=== PATIENT | female | born 1980 | race Caucasian/White ===

== ENCOUNTER 2016-09-25 04:59 | Inpatient (IN) | payer OTHER ==
[2016-09-25] MEDS ORDERED: LR 1,500 ML IV ONE (05:00)
[2016-09-25] MEDS ORDERED: SODIUM CHLORIDE 0.9% 3 ML FLUSH FLUSH PRN ×2 (05:00→08:32)
[2016-09-25] MEDS ORDERED: LR 1,000 ML IV SCH (05:00)
[2016-09-25] MEDS ORDERED: CEFAZOLIN 1 GM VIAL IV ONE (05:00)
[2016-09-25 05:28] VITALS: BMI 42.4
[2016-09-25 05:49] LABS: AUTOMATED BASOPHIL 0.3 % (0-2); AUTOMATED EOSINOPHIL 0.9 % (0-5); AUTOMATED LYMPH 20.6 % (17-44); AUTOMATED MONOCYTE 8.3 % (3-10); AUTOMATED NEUTROPHIL 69.9 % (45-76); MPV 7.4 fL (7.4-10.4)
[2016-09-25] MEDS ORDERED: Vaccine Screening Complete SCH ×2 (06:00→09:00)
--- NOTE | 2016-09-25 07:08 | HISTPHYS ---
- HISTORY OF PRESENT ILLNESS Age: 35 Estimated Due Date: 09/30/16 Gestational Age: 39 : 3 Para: 1 Patient Presents to:: Labor & Delivery Presents for:: Current : No Complications - REVIEW OF SYSTEMS Reports/Denies: Denies: Complaints Pain: Reports: None - ALLERGIES Allergies Allergy/AdvReac Type Severity Reaction Status Date / Time No Known Allergies Allergy Verified 09/25/16 05:14 - PAST MEDICAL HISTORY Reports: No Significant History - PAST SURGICAL HISTORY Reports: Section, Dilation & Curettage - SOCIAL HISTORY Smoking Status: Former smoker Social History: Denies: Amphetamine Use, Alcohol Use, Barbiturate Use, Benzodiazipine Use, Cocaine Use, Heroin Use, Marijuana Use, Methadone Use, MDMA (Ecstasy) Use, Substance Use Disorder Marital Status: - GENITOURINARY HISTORY HX : 3 Para: 1 Live Deliveries (# of pregnancies resulting in a live ): 1 1 Sex: Male Weight: 8-3 Weeks Gestation: 40 2 Weeks Gestation: 8 Complications with or Delivery: Reports: SAB/Miscarriage - PHYSICAL EXAM Vital Signs:: Temperature: 97.5 F (09/25/16 05:32) HR: 95 (09/25/16 05:32) RR: 20 (09/25/16 05:32) BP: 133/63 (09/25/16 05:32) Pulse Ox: 98 (09/25/16 05:32) GENERAL: Alert, Oriented, No Acute Distress HEENT: Normal CARDOVASCULAR/CHEST: Systolic murmur RESPIRATORY: Normal - CTA ABDOMEN: Gravid, Non-Tender, Obese Fundal Height (cm): 41 MUSCULOSKELETAL: Normal EXTERMITIES: Moves All Extremeties. negative: Edema - ASSESSMENT (ACTIVE PROBLEMS) (1) Term Acute Z34.80 - ENCOUNTER FOR SUPRVSN OF NORMAL , UNSP TRIMESTER (2) Previous delivery affecting Acute O34.219 - MATERNAL CARE FOR UNSP TYPE SCAR FROM PREVIOUS DEL - PLAN Admit Other Plan: 35 yo presents at term for repeat ltcs. Routine care, admit expect delivery.
[2016-09-25] MEDS ORDERED: hydrALAZINE 20 MG/ML VIAL IV PRN (07:13)
[2016-09-25] MEDS ORDERED: MEPERIDINE 25 MG/ML TUBEX IV PRN (07:13)
[2016-09-25] MEDS ORDERED: FENTANYL 100 MCG/2 ML VIAL IV PRN ×2 (07:13)
[2016-09-25] MEDS ORDERED: LABETALOL 20 MG/4 ML SYRINGE IV PRN (07:13)
[2016-09-25] MEDS ORDERED: ONDANSETRON HCL 4 MG/2 ML VIAL IV PRN (07:13)
[2016-09-25] MEDS ORDERED: HYDROmorphone 1 MG INJECTION IV PRN ×2 (07:13)
[2016-09-25] MEDS ORDERED: ONDANSETRON HCL 4 MG ODT TAB PO PRN (07:13)
--- NOTE | 2016-09-25 07:14 | HIM.ANES ---
Anesthesia Evaluation & Plan Diagnoses: MATERNAL CARE FOR UNSP TYPE SCAR FROM PREVIOUS DEL (09/25/16) - Focused Review of Systems Cardiac History: Yes: Hx Cardiac Disorders, Hx Abnormal Cholesterol/ Hyperlipidemia HEENT: No: Other HEENT Problems Hx Other HEENT Surgery: EYE SURGERY Gastrointestinal: No: Hx Gastrointestinal Disorders Neurological/Musculoskeletal: No: Hx Neurological Disorders Physiological: No Hx Mental/Emotional Disorders Endocrine: Yes: Hx Hypothyroidism (takes levothyroxine) Smoking Status: Former smoker Past Social History: Denies: Amphetamine Use, Alcohol Use, Barbiturate Use, Benzodiazipine Use, Cocaine Use, Heroin Use, Marijuana Use, Methadone Use, MDMA (Ecstasy) Use, Substance Use Disorder Hx Stress Test (date): No Hx Echocardiogram (date): No Hx Chest Xray (date): No Other Surgical History: EYE SURGERY C/S surgery for lazy eye(lt side) 4yrs old - Focused Physical Exam NPO since: midnight Mallampati: Class II Thyromental Distance: Greater than 3 Neck: Full Range of Motion Dental: Normal - no significant findings Cardiovascular/Chest: Normal Respiratory: Lungs clear Any problems with anesthesia, including nausea and vomiting?: No Any relatives with a history of Malignant Hyperthermia?: No Beta Katherine given (if appropriate): N/A Other: Problem List Problem Status Onset Previous delivery affecting Acute Term Acute CBC/BMP/Other 09/25/16 05:20 Allergies Allergy/AdvReac Type Severity Reaction Status Date / Time No Known Allergies Allergy Verified 09/25/16 05:14 Home Medications Medication Instructions Recorded Last Taken Type Levothyroxine Sodium [Synthroid] 100 mcg PO DAILY 07/01/13 09/25/16 04:00 History Pnv22/Iron Cbn&Gluc/FA/Dss/Dha 1 each PO DAILY 07/01/13 09/24/16 22:00 History [Citranatal Dha Pack] Height and Weight Patient's height 5 ft 5 in Patient's weight 127.006 kg BMI 42.4 Vital Signs Temperature 97.5 F 09/25/16 05:32 Pulse Rate 95 09/25/16 05:32 Respiratory Rate 20 09/25/16 05:32 Blood Pressure 133/63 09/25/16 05:32 Pulse Oxygen Saturation 98 09/25/16 05:32 - Anesthetic Plan Anesthesia Type: Spinal ASA Class: 2 -: I have examined this patient and reviewed the medical record. The patient has been assessed prior to anesthesia. Risks and benefits of anesthesia and anesthetic technique options have been discussed and all questions answered. The patient accepts the risk and desires me to proceed with the planned anesthetic.
[2016-09-25] MEDS ORDERED: OXYTOCIN 1,000 ML IV ONE (08:32)
[2016-09-25] MEDS ORDERED: LANOLIN OINTMENT 0.25 OZ TUBE TOP PRN (08:32)
[2016-09-25] MEDS ORDERED: ZOLPIDEM TARTRATE 5 MG TAB PO PRN (08:32)
[2016-09-25] MEDS ORDERED: HYDROmorphone 50 ML IV PRN (08:32)
[2016-09-25] MEDS ORDERED: OXYCODONE HCL 5 MG TABLET PO PRN (08:32)
[2016-09-25] MEDS ORDERED: PROMETHAZINE 25 MG/ML VIAL IV PRN (08:32)
--- NOTE | 2016-09-25 08:35 | OBDELNOTE ---
Delivery Note - Problem/Diagnosis (1) Term Status: Acute (2) Previous delivery affecting Status: Acute (3) Single live Status: Acute (4) Breech presentation at Status: Acute - Admitting Diagnosis Reason for Visit: Admission Date: 09/25/16 Admission time: 05:18 Gestational Age: 39 - Procedures Procedure(s): Non-Stress Test Labor Anesthesia/Analgesia: Spinal Anesthesia Date: 09/25/16 Delivery Presentation: [place] Breech Episiotomy: None Laceration: None : Repeat, Scheduled Reason: Prior Low Transverse Section, Malpresentation Skin Incision: Pfannenstiel Uterine Incision: Low Transverse EBL: 400 Fluid: Clear Placenta: Manual Removal Description: Normal Cord: 3 Vessels - Procedures Procedures: None - Data Infant Sex: Female Weight: 3.912 kg (1min): 9 (5min): 9 Feeding Plans for Infant: Breast Plans Circumcision: No [place] Complications: No Complications to:: LDRP/Mother's Room - /Operative Complications /Op Complications: None Discharge Planning - REASON FOR ADMISSION Patient Presents to:: Labor & Delivery Reason for Visit: - DISCHARGE INSTRUCTIONS
[2016-09-25] MEDS: LR 1,000 ML IV SCH ×2 (08:40→16:55)
[2016-09-25] MEDS ORDERED: Pharmacy Order Set Alert SCH (09:00)
--- NOTE | 2016-09-25 09:38 | HIMOPRPT ---
DATE OF PROCEDURE: DATE OF PROCEDURE: 09/25/16 PREOPERATIVE DIAGNOSIS: 1. Intrauterine at [39 weeks]. 2. Previous desires repeat. 3. Breech presentation POSTOPERATIVE DIAGNOSIS: 1. Intrauterine at [39 weeks]. 2. Previous desires repeat. 3. Breech presentation PROCEDURE: Repeat low transverse via Pfannenstiel incision. SURGEON: Brunilda Jo MD. ANESTHESIA: [spinal] FINDINGS: Vigorous [female] , [8] pounds [10] ounces with Apgars of [9] and [9]. Footling breech COMPLICATIONS: None. ESTIMATED BLOOD LOSS: 400 mL. URINE OUTPUT: [200] mL of clear urine. PROCEDURE IN DETAIL: Patient was taken to the operating room, anesthesia found be adequate. She was prepped and draped in a usual sterile fashion with left lateral tilt. A Pfannenstiel incision was made with scalpel, carried down to the fascia. The fascia was nicked in midline and the incision extended laterally with Tam scissors. The fascia was elevated up, dissected off rectus muscles. Rectus muscles were in midline, peritoneum was identified and entered. Peritoneal incision was extended superiorly and inferiorly with good visualization of bladder. Bladder flap was created with blunt sharp dissection. The lower uterine segment was incised in transverse fashion with scalpel extended bluntly. was delivered by breech extraction atraumatically. The nose and mouth were suctioned bulb suction. Cord clamped and cut and infant handed off to awaiting nursery personnel. Placenta was removed. The uterus was exteriorized and cleared of all clots. The uterine incision was closed with #1 chromic at this time. The uterus was returned to the abdomen. Hemostasis verified. Clots removed from the gutters. The fascia was closed with 0 PDS. Subcuticular fat closed with 0 plain gut suture. Skin was closed with 4-0 monocryl in subcuticular fashion. Dermabond was applied to the skin site. Sponge, laps, and counts correct x2. The patient tolerated well. ANESTHESIA: Spinal Anesthesia
--- NOTE | 2016-09-25 09:40 | PCM.DCS92 ---
- Primary/Secondary Discharge Diagnoses (1) Term Acute Z34.80 - ENCOUNTER FOR SUPRVSN OF NORMAL , UNSP TRIMESTER (2) Previous delivery affecting Acute O34.219 - MATERNAL CARE FOR UNSP TYPE SCAR FROM PREVIOUS DEL (3) Single live Acute Z37.0 - SINGLE LIVE (4) Breech presentation at Acute O32.1XX0 - MATERNAL CARE FOR BREECH PRESENTATION, UNSP - HOSPITAL COURSE /Op Complications: None - DISCHARGE INSTRUCTIONS Discharge Disposition: Home Discharge Condition: Good Cognitive Discharge Status: Unimpaired Fuctional Discharge Status: Independent Patient Leaving with Prescriptions?: Yes Prescriptions: Ibuprofen Tablet [Motrin] 800 mg PO TID #30 tab Oxycodone Immediate Release [Oxycodone Immediate Release Tablet] 5 mg PO Q4H PRN #30 tab PRN Reason: Pain Referrals: Brunilda Jo MD [Staff Physician] - Two Weeks - Diet Diet at Discharge: Regular - Activity Activity: No Heavy Lifting, Pelvic Rest, No Driving No Driving for: 6 weeks - Instructions Call Physician for: Sudden/Sever Chest Pain, Foul Smelling Discharge, Pain/ Redness in Calf/Leg, Temperature Above 100.4, Drainiage from Wound - DC Summary Notes Discharge Medications: *See "Discharge Medication List" for a complete list of Home Medications and Discharge Medications.* Obstetric Hospital Course - Admitting Diagnosis Reason for Visit: Admission Date: 09/25/16 Admission time: 05:18 Gestational Age: 39 - Procedures Procedure(s): Non-Stress Test Labor Anesthesia/Analgesia: Spinal Anesthesia Date: 09/25/16 Delivery Presentation: [place] Breech Episiotomy: None Laceration: None : Repeat, Scheduled Skin Incision: Pfannenstiel Uterine Incision: Low Transverse EBL: 400 Fluid: Clear Placenta: Manual Removal Description: Normal Cord: 3 Vessels - Procedures Procedures: None - Data Sex: Female Weight: 3.912 kg (1min): 9 (5min): 9 Feeding Plans for : Breast Plans Circumcision: No [employer] Complications: No Complications to:: LDRP/Mother's Room - /Operative Complications /Op Complications: None
[2016-09-25] MEDS: IBUPROFEN 800 MG TAB PO SCH ×2 (11:53→18:27)
[2016-09-25] MEDS ORDERED: PHENYLEPHRINE 10 MG/ML VIAL IC ONE (12:19)
[2016-09-25] MEDS ORDERED: METOCLOPRAMIDE 10 MG/2 ML VIAL IV ONE (12:19)
[2016-09-25] MEDS ORDERED: OXYTOCIN 10 UNITS/ML VIAL IM ONE (12:19)
[2016-09-25] MEDS ORDERED: HYDROmorphone 2 MG/ML VIAL IM ONE (12:19)
[2016-09-25] MEDS ORDERED: ONDANSETRON HCL 4 MG/2 ML VIAL IV ONE (12:19)
--- NOTE | 2016-09-25 16:14 | SC.ANESPOS ---
Post-Anesthesia Note LOC: Fully Awake Post-Anesthesia Assessment: Awake, Returned to Baseline, Hemodynamically Stable , Pain Control Adequate Phase I & II Recovery Complete: Yes Apparent Anesthesia Complication: No : N - Vital Signs Blood Pressure: 118/67 Pulse: 75 Resp Rate: 20 O2 Sat: 94 Temp: 97.5 F
[2016-09-25] MEDS: SODIUM CHLORIDE 0.9% 3 ML FLUSH FLUSH SCH ×3 (20:12→20:13)
[2016-09-26] MEDS: IBUPROFEN 800 MG TAB PO SCH ×5 (00:12→23:46)
[2016-09-26] MEDS: LR 1,000 ML IV SCH ×2 (00:15→16:55)
[2016-09-26] MEDS: SODIUM CHLORIDE 0.9% 3 ML FLUSH FLUSH SCH ×2 (06:20→18:26)
[2016-09-26] MEDS: DOCUSATE-SENNA CONCENTRATE TAB PO SCH ×2 (07:57→23:46)
[2016-09-26] MEDS: OXYCODONE HCL 5 MG TABLET PO PRN ×2 (08:14→17:08)
--- NOTE | 2016-09-26 10:42 | OBGYNPROG ---
- Subjective Post Day: 1 Post Op Day: 1 Reports: Ambulating, Out of Bed, Tolerating Regular Diet, Voiding Freely. Denies: Complaints Pain: Reports: Well Managed, Incision - Objective Vital Signs: Temperature: 97.4 F (09/26/16 06:14) HR: 79 (09/26/16 06:14) RR: 16 (09/26/16 08:00) BP: 121/56 (09/26/16 06:14) Pulse Ox: 94 (09/25/16 16:14) Laboratory Results - last 24 hr 09/25/16 09/26/16 05:20 07:10 Hgb 11.0 L D Hct 32.3 L RPR Nonreactive General: Alert, Oriented, No Acute Distress HEENT: Normal Cardiovascular/Chest: Normal ABDOMEN: Soft Abdominal Incision: Incision Clean/Dry/Intact MUSCULOSKELETAL: Normal EXTERMITIES: Moves All Extremeties. Denies: Edema OBGYN Progress Note - ASSESSMENT (1) Term Status: Acute Code(s): Z34.80 - ENCOUNTER FOR SUPRVSN OF NORMAL , UNSP TRIMESTER (2) Previous delivery affecting Status: Acute Code(s): O34.219 - MATERNAL CARE FOR UNSP TYPE SCAR FROM PREVIOUS DEL (3) Single live Status: Acute Code(s): Z37.0 - SINGLE LIVE (4) Breech presentation at Status: Acute Code(s): O32.1XX0 - MATERNAL CARE FOR BREECH PRESENTATION, UNSP - PLAN Routine Care, Advance Diet, Ambulate, Discontinue Indwelling Catheter , Out of Bed, Discontinue PREPARATION ROOM WORKER, Start PO Meds
[2016-09-27] MEDS: OXYCODONE HCL 5 MG TABLET PO PRN (04:23)
[2016-09-27 05:46] VITALS: BP 131/73; PULSE 90; TEMP 97.9
[2016-09-27] MEDS: IBUPROFEN 800 MG TAB PO SCH (05:47)
[2016-09-27] MEDS: DOCUSATE-SENNA CONCENTRATE TAB PO SCH (08:45)
[2016-09-27] MEDS: SODIUM CHLORIDE 0.9% 3 ML FLUSH FLUSH SCH (08:45)
--- NOTE | 2016-09-27 10:25 | OBGYNPROG ---
- Subjective Post Day: 2 Post Op Day: 2 Reports: Ambulating, Out of Bed, Tolerating Regular Diet, Voiding Freely. Denies: Complaints Pain: Reports: Well Managed, Incision - Objective Vital Signs: Temperature: 97.9 F (09/27/16 05:45) HR: 90 (09/27/16 05:45) RR: 16 (09/27/16 05:45) BP: 131/73 (09/27/16 05:45) Pulse Ox: 94 (09/25/16 16:14) General: Alert, Oriented, No Acute Distress HEENT: Normal ABDOMEN: Non-Tender, Obese, Soft Abdominal Incision: Incision Clean/Dry/Intact MUSCULOSKELETAL: Normal EXTERMITIES: Moves All Extremeties. Denies: Edema OBGYN Progress Note - ASSESSMENT (1) Term Status: Acute Code(s): Z34.80 - ENCOUNTER FOR SUPRVSN OF NORMAL , UNSP TRIMESTER (2) Previous delivery affecting Status: Acute Code(s): O34.219 - MATERNAL CARE FOR UNSP TYPE SCAR FROM PREVIOUS DEL (3) Single live Status: Acute Code(s): Z37.0 - SINGLE LIVE (4) Breech presentation at Status: Acute Code(s): O32.1XX0 - MATERNAL CARE FOR BREECH PRESENTATION, UNSP - PLAN Routine Care, Discharge
== END 2016-09-27 12:20 | disposition home or self-care (01) | DRG 766 ==
LOC: MASU 04:59 → EDSTATUS 09:55
PROVIDERS: ADMIT Obstetrics & Gynecology; ATTEND Obstetrics & Gynecology
PROC: 10D00Z1 Extraction of Products of Conception, Low, Open Approach (ICD-10-PCS; principal; 2016-09-25 07:15)
DX: O34.211 Maternal care for low transverse scar from previous cesarean delivery (principal); O32.8XX0 Maternal care for other malpresentation of fetus, not applicable or unspecified; Z3A.39 39 weeks gestation of pregnancy; Z37.0 Single live birth; Z87.891 Personal history of nicotine dependence
CPT/HCPCS: 59025; 85014; 85018; 85025; 86592; 86850; 86900; 86901; 96360; 96361; J0690; J1170; J2370; J2405; J2590; J2765; J3490